=== PATIENT | male | born 1980 | race Hispanic/Latino ===

== ENCOUNTER 2018-02-11 17:11 | Inpatient (IN) | payer SELFPAY ==
[2018-02-11] MEDS ORDERED: Acetaminophen 500 MG TAB ONE ×2 (17:47→17:52)
[2018-02-11 18:27] LABS: Hemoglobin 14.4 g/dL (14.0-18.0); Mean Corpuscular HGB CONC 34.7 g/dL (32.0-36.0); Mean Corpuscular Hemoglobin 31.8 pg (27.0-31.0); Mean Corpuscular Volume 91.8 fL (78.0-98.0); Platelet Count 365 thou/uL (130-400); RBC Distribution Width 12.9 % (11.5-14.5); Red Blood Cell (RBC) Count 4.51 mill/uL (4.70-6.10); White Blood Cell (WBC) Count 19.8 thou/uL (4.8-10.8)
[2018-02-11 18:41] LABS: Band 7 % (5-11); Lymphocytes 10 % (21-51); MDiff Complete? YES; Monocytes 9 % (0-10); Neutrophil 73 % (42-75); PLT Morphology Comment Appears Adequate; RBC Morphology Normal
[2018-02-11] MEDS ORDERED: cefTRIAXone\\ROCEPHIN 2 GM VIAL ONE (19:46)
[2018-02-11] MEDS ORDERED: predniSONE 20 MG TAB ONE (19:46)
[2018-02-11 19:54] LABS: ALT (SGPT) 48 U/L (8-55); AST (SGOT) 40 U/L (5-34); Albumin 4.1 g/dL (3.5-5.0); Alkaline Phosphatase 76 U/L (40-150); Anion Gap 16 mmol/L (10-20); BUN (Urea Nitrogen) 14 mg/dL (8.9-20.6); Bilirubin, Total 2.3 mg/dL (0.2-1.2); Calc. Creatinine Clearance 0 mL/min (70-130); Calcium 9.1 mg/dL (7.8-10.44); Carbon Dioxide 18 mmol/L (22-29); Chloride 101 mmol/L (98-107); Estimated GFR-MDRD 71; Globulin 3.7 g/dL (2.4-3.5); Glucose 104 mg/dL (70-105); Protein, Total 7.8 g/dL (6.0-8.3); Sodium 131 mmol/L (136-145)
--- NOTE | 2018-02-11 19:54 | RAD ---
CHEST TWO VIEWS: 02/11/18 COMPARISON: 11/20/14. HISTORY: Dyspnea. Fever. Shortness of breath x3 days. FINDINGS: Normal cardiac silhouette. Pulmonary vessels and hilum are normal. Costophrenic angles are clear. Lung volumes are diminished which may accentuate the interstitium. The possibility of an interstitial infiltrate cannot be completely excluded. No consolidation with air bronchograms. No pneumothorax or osseous abnormalities. IMPRESSION: 1. Diminished lung volumes likely due to poor inspiratory effort. 2. Prominent interstitium which may be accentuated by decreased lung volumes. 3. Interstitial infiltrate cannot be excluded. Continued surveillance is recommended. POS: [facility]
[2018-02-11] MEDS ORDERED: Ondansetron HCl/PF 4 MG/2 ML Vial ONE (19:59)
[2018-02-11 20:24] LABS: Bilirubin Small (Negative); Blood, Urine Negative (Negative); Clarity CLEAR (Clear); Glucose, Urine (Dipstick) Negative (Negative); Leukocyte Trace (Negative); Nitrite Negative (Negative); Protein, Urine (Dipstick) 30 mg/dL (Neg-Trace); Specific Gravity, Urine 1.021 (1.002-1.036); Urobilinogen > or = 8.0 mg/dL (0.2-1.0)
[2018-02-11 20:26] LABS: Bacteria/HPF None Seen HPF (None Seen); Hyaline Casts/LPF 0-3 HYALINE CAST LPF (0-3 Hyaline); Squamous Epithelial 0-3 HPF (0-3); WBC/HPF 0-3 HPF (0-3)
[2018-02-11] MEDS ORDERED: Azithromycin 500 MG VIAL ONE (20:26)
[2018-02-11 20:38] LABS: RBC/HPF 0-3 HPF (0-3)
[2018-02-11 20:43] LABS: Actual Bicarbonate (HCO3a) 18.6 mEq/L (22-28); Base Excess (BEa) 4.5 mEq/L (-2.0 to +3.0); CO2 Tension 28.8 mmHg (35.0-45.0); Carboxyhemoglobin (COHb) 0.1 gm% (0.0-3.0); Hemoglobin (Hb) 13.2 g/dL (14.0-18.0); O2 Tension (PaO2) 72.6 mmHg (80.0-100.0); pH, Arterial 7.43 (7.35-7.45)
[2018-02-11 20:44] LABS: Analyzer IN Cardio ER; Calcium, Ionized 1.08 mmol/L (1.12-1.30); Potassium - ABG Lab 3.71 mmol/L (3.70-5.30); Puncture Site RRA
[2018-02-11] MEDS ORDERED: Albuterol Sulfate 1.25 MG/3 ML NEB NEB PRN (21:11)
[2018-02-11] MEDS ORDERED: Ondansetron HCl/PF 4 MG/2 ML Vial IVP PRN (21:13)
[2018-02-11] MEDS ORDERED: Acetaminophen 325 MG TAB PO PRN (21:13)
[2018-02-12] MEDS: Sodium Chloride 0.9% 1,000 ML IV SCH ×3 (01:21→18:13)
[2018-02-12 01:33] VITALS: BMI 36.9
[2018-02-12] MEDS: Albuterol Sulfate 1.25 MG/3 ML NEB NEB SCH ×7 (02:04→22:46)
[2018-02-12 05:41] LABS: #Lymphocytes 1.1 thou/uL (1.20-3.40); %Eosinophils 0.1 % (0.0-10.0); %Lymphocytes 7.5 % (21.0-51.0); %Monocytes 7.4 % (0.0-10.0); %Neutrophils 85.1 % (42.0-75.0); Hemoglobin 12.7 g/dL (14.0-18.0); Mean Corpuscular HGB CONC 34.7 g/dL (32.0-36.0); Mean Corpuscular Hemoglobin 32.1 pg (27.0-31.0); Mean Corpuscular Volume 92.6 fL (78.0-98.0); Mean Platelet Volume 7.4 fL (7.4-10.4); Platelet Count 368 thou/uL (130-400); RBC Distribution Width 13.1 % (11.5-14.5); Red Blood Cell (RBC) Count 3.95 mill/uL (4.70-6.10); White Blood Cell (WBC) Count 14.1 thou/uL (4.8-10.8)
[2018-02-12 06:03] LABS: Anion Gap 14 mmol/L (10-20); BUN (Urea Nitrogen) 12 mg/dL (8.9-20.6); Calc. Creatinine Clearance 178 mL/min (70-130); Calcium 8.8 mg/dL (7.8-10.44); Carbon Dioxide 20 mmol/L (22-29); Chloride 108 mmol/L (98-107); Estimated GFR-MDRD Greater than 90; Glucose 133 mg/dL (70-105); Potassium 4.5 mmol/L (3.5-5.1); Sodium 137 mmol/L (136-145)
--- NOTE | 2018-02-12 06:54 | HP ---
PRIMARY CARE PHYSICIAN: Patient goes to see Dr. Caldera. CODE STATUS: FULL CODE. TIME OF EVALUATION: 8:50 p.m. CHIEF COMPLAINT: Severe shortness of breath, wheezing. HISTORY OF PRESENT ILLNESS: This is a 37-year-old male patient with past medical history of asthma, came to the hospital after having severe shortness of breath, associated with fever and wheezing. As noted, the patient had a previous episode of asthma and has been in ICU never intubated, has also reported having cough, scant sputum production, no sick contacts at home. The patient needed aggressive treatment for asthma exacerbation in the ER. Symptoms are severe, ABG showing respiratory alkalosis. During my examination, the patient is able to move air in the lungs, also still have some significant wheezing bilaterally, Chest x-ray positive for possible pneumonia, we will admit for this reason REVIEW OF SYSTEMS: CONSTITUTIONAL: The patient has fever or chills, generalized weakness. RESPIRATORY: The patient had cough, sputum production, shortness of breath. CARDIOVASCULAR: No chest pain, palpitation. GASTROINTESTINAL: No nausea, no vomiting, diarrhea or abdominal pain. LAYOUT TECHNICIAN: No dizziness, headache or feeling lightheaded. GENITOURINARY: No burning on urination. EXTREMITIES: No leg swelling. All other systems reviewed and negative except for the findings mentioned above. PAST MEDICAL HISTORY: The patient has history of asthma, reportedly kidney problems. PAST SURGICAL HISTORY: No surgical history. FAMILY HISTORY: Reviewed and non contributory for current presentations. PSYCHIATRIC HISTORY: No previous psychiatric history. SOCIAL HISTORY: Drinks socially, no drugs, smokes 6 cigarettes per day. ALLERGIES: No known drug allergies. MEDICATIONS: Albuterol, Proventil, Qvar. PHYSICAL EXAMINATION: VITAL SIGNS: On presentation, heart rate 98, respiratory rate was 22, oxygen saturation 94. GENERAL APPEARANCE: The patient is alert, oriented, not in acute distress. HEENT: Eyes; normal conjunctivae, moist oral mucosa. Anicteric. No JVD. RESPIRATORY: Bilateral air entry is improved, the patient has bilateral wheezing, no rales are heard. Symmetrical expansion. CARDIOVASCULAR: The patient was tachycardic with no murmurs. No gallop. No edema. ABDOMEN: Soft, normal bowel sounds. MUSCULOSKELETAL: Baseline range of motion and strength. No tenderness. SKIN: Warm and intact. No pallor, no rash, no redness. Peripheral pulses are present. Capillary refill seems to be intact. NEUROLOGIC: Baseline sensory. No evidence of any new focal weakness. Baseline speech. Cranial nerves seem to be intact. PSYCHIATRIC: The patient is good mood. He is alert and oriented. Optimal judgment. EKG was reviewed. The patient has normal sinus rhythm with a rate of 82, no evidence of any acute ischemic event. This was discussed with performing physician from ER. Chest x-ray showed poor inspiratory effort and possible early infiltrate as reported by radiologist. LABORATORY DATA: Labs were reviewed. The patient has white count 19.8 with hemoglobin 14, MCV 91, platelet count 365. Blood gas showed pH 7.43 with pCO2 28, pO2 72. This was done to room air. Chemistry: Sodium 131, potassium 4.0, chloride 101, carbon dioxide 18, anion gap 16, BUN 14, creatinine 1.1, GFR 71, glucose 104. Lactic acid 1.1, calcium 9.1, total bilirubin 2.3, AST 40, ALT 48 , alkaline phosphatase 76. Serum total protein 7.8, albumin 4.1, globulin 3.7, albumin globulin ratio is 1.1. The urine was done and it was negative for infection. ASSESSMENT AND PLAN: The patient will be placed in the hospital for the following medical problems. 1. Severe asthma attack, patient given steroids, nebulizers, the patient also will need antibiotics due to pneumonia. 2. Community-acquired pneumonia. The patient is started on antibiotics, given underlying asthma, also treated with nebs and steroids. We will follow cultures. We will adjust treatment as needed. 3. Deep venous thrombosis prophylaxis. 4. The patient is obese, advised to lose weight. 5. Respiratory alkalosis, the patient has pCO2 of 28 with pH 7.43, this is likely secondary to hyperventilation due to asthma, we will treat underlying condition. 6. Hyponatremia. Sodium 131, this is mild, no need for any acute intervention. 7. Anion gap metabolic acidosis. There is compensatory for respiratory alkalosis. 8. Possible sepsis. The patient had fever, tachycardia, leukocytosis, source is pneumonia, treatment as above. 9. Dehydration. MTDD
[2018-02-12] MEDS: Enoxaparin Sodium 40 MG/0.4 ML SYRINGE SC SCH (08:12)
[2018-02-12 09:23] LABS: ALT (SGPT) 54 U/L (8-55); AST (SGOT) 48 U/L (5-34); Albumin 3.6 g/dL (3.5-5.0); Alkaline Phosphatase 75 U/L (40-150); Bilirubin, Direct 0.5 mg/dL (0.1-0.3); Bilirubin, Total 1.1 mg/dL (0.2-1.2)
[2018-02-12] MEDS: cefTRIAXone\\ROCEPHIN 1 GM in Sodium Chloride 0.9% 100 ML IVPB SCH (20:24)
[2018-02-12] MEDS: Azithromycin 500 MG in Sodium Chloride 0.9% 250 ML 250 ML IVPB SCH (22:04)
--- NOTE | 2018-02-12 22:04 | PDOC.PN ---
- Subjective Encounter Start Date: 02/12/18 Encounter Start Time: 09:45 Patient seen and examined for Asthma exacerbation/Pneumonia. Wheezing +. No other complaints. No overnight events - Objective Resuscitation Status: Resuscitation Status FULL:Full Resuscitation MAR Reviewed: Yes Vital Signs & Weight: Vital Signs (12 hours) Temp Pulse Resp BP Pulse Ox 02/12/18 18:42 56 L 16 95 02/12/18 16:23 98.5 F 70 16 120/71 93 L 02/12/18 14:29 68 16 96 02/12/18 11:48 98.6 F 64 18 106/58 L 93 L 02/12/18 11:01 67 16 97 Weight Weight 235 lb 12.8 oz I&O: 02/11/18 02/12/18 02/13/18 06:59 06:59 06:59 Intake Total 602 1520 Balance 602 1520 Result Diagrams: 02/13/18 04:19 02/13/18 04:19 Phys Exam - Physical Examination Constitutional: NAD Respiratory: no rhonchi, wheezing present Cardiovascular: RRR, no rub Gastrointestinal: soft, non-tender, no distention, positive bowel sounds Musculoskeletal: no edema Neurological: non-focal, moves all 4 limbs Dx/Plan - Plan continue antibiotics, respiratory therapy, DVT proph w/lovenox, DVT proph w/SCDs IMPRESSION: 1. Acute Asthma Exacerbation 2. CA Pneumonia ?Pneumococcal 3. Obesity BMI 36.9 4. Abn LFTs PLAN: Cont Ceftriaxone/Azithromycin with Steroids Cont Nebs AM labs Cont other meds as below Review of Systems - Review of Systems Constitutional: negative: fever, chills, sweats, weakness, malaise, other Eyes: negative: Pain, Vision Change, Conjunctivae Inflammation, Eyelid Inflammation, Redness, Other Respiratory: Cough, Dry, SOB with Excertion, Wheezing Genitourinary: negative: Dysuria, Frequency, Incontinence, Hematuria, Retention , Other - Medications/Allergies Allergies/Adverse Reactions: Allergies Allergy/AdvReac Type Severity Reaction Status Date / Time No Known Drug Allergies Allergy Verified 02/12/18 01:50 Medications: Current Medications Acetaminophen (Tylenol) 650 mg PO Q4H PRN PRN Reason: Headache/Fever or Pain Albuterol Sulfate (Albuterol Sulfate) 1.25 mg NEB [id number] MARK Last Admin: 02/12/18 18:42 Dose: 1.25 mg Albuterol Sulfate (Albuterol Sulfate) 1.25 mg NEB Q2H PRN PRN Reason: Wheezing/SOB Enoxaparin Sodium (Lovenox) 40 mg SC 0900 [facility] Last Admin: 02/12/18 08:12 Dose: 40 mg Azithromycin 500 mg/ Sodium (Chloride) 250 mls @ 250 mls/hr IVPB Q24HR MARK Ceftriaxone Sodium 1 gm/ (Sodium Chloride) 100 mls @ 200 mls/hr IVPB Q24HR [facility] Last Admin: 02/12/18 20:24 Dose: 100 mls Sodium Chloride (Normal Saline 0.9%) 1,000 mls @ 100 mls/hr IV .Q10H [facility] Last Admin: 02/12/18 18:13 Dose: Not Given Methylprednisolone Sodium Succinate (Solu-Medrol) 40 mg IVP 0200,0800,1400, 2000 [facility] Last Admin: 02/12/18 20:24 Dose: 40 mg Ondansetron HCl (Zofran) 4 mg IVP Q6H PRN PRN Reason: Nausea/Vomiting Pneumococcal Polyvalent Vaccine (Pneumovax 23) 0.5 ml IM .ONCE ONE Stop: 02/13/18 09:01 Sodium Chloride (Flush - Normal Saline) 10 ml IVF Q12HR [facility] Last Admin: 02/12/18 20:24 Dose: Not Given Sodium Chloride (Flush - Normal Saline) 10 ml IVF PRN PRN PRN Reason: Saline Flush
[2018-02-13] MEDS: Sodium Chloride 0.9% 1,000 ML IV SCH ×3 (02:19→17:51)
[2018-02-13] MEDS: Albuterol Sulfate 1.25 MG/3 ML NEB NEB SCH ×6 (02:36→22:19)
[2018-02-13 04:54] LABS: Anion Gap 11 mmol/L (10-20); BUN (Urea Nitrogen) 13 mg/dL (8.9-20.6); Calc. Creatinine Clearance 198 mL/min (70-130); Calcium 8.4 mg/dL (7.8-10.44); Carbon Dioxide 21 mmol/L (22-29); Chloride 110 mmol/L (98-107); Estimated GFR-MDRD Greater than 90; Glucose 133 mg/dL (70-105); Sodium 138 mmol/L (136-145)
[2018-02-13 05:03] LABS: Band 14 % (5-11); Hemoglobin 12.3 g/dL (14.0-18.0); Lymphocytes 9 % (21-51); MDiff Complete? YES; Mean Corpuscular Hemoglobin 31.4 pg (27.0-31.0); Mean Corpuscular Volume 92.1 fL (78.0-98.0); Mean Platelet Volume 7.1 fL (7.4-10.4); Monocytes 4 % (0-10); Neutrophil 73 % (42-75); Platelet Count 420 thou/uL (130-400); RBC Distribution Width 13.1 % (11.5-14.5); Red Blood Cell (RBC) Count 3.92 mill/uL (4.70-6.10); White Blood Cell (WBC) Count 22.4 thou/uL (4.8-10.8)
[2018-02-13] MEDS: Enoxaparin Sodium 40 MG/0.4 ML SYRINGE SC SCH (10:22)
[2018-02-13] MEDS ORDERED: Famotidine 20 MG TAB PO SCH (10:30)
[2018-02-13] MEDS ORDERED: predniSONE 20 MG TAB PO SCH (10:30)
[2018-02-13] MEDS: predniSONE 20 MG TAB PO SCH (17:50)
--- NOTE | 2018-02-13 18:24 | PDOC.PN ---
- Subjective Encounter Start Date: 02/13/18 Encounter Start Time: 13:00 Patient seen and examined for Asthma flare with Pneumonia. Feels better. Intermittent wheezing +. Dry cough +. No other complaints. No overnight events - Objective Resuscitation Status: Resuscitation Status FULL:Full Resuscitation MAR Reviewed: Yes Vital Signs & Weight: Vital Signs (12 hours) Temp Pulse Resp BP Pulse Ox 02/13/18 16:50 98.0 F 70 20 119/69 94 L 02/13/18 16:40 97.6 F 76 20 109/65 92 L 02/13/18 11:00 97.8 F 70 20 114/66 94 L 02/13/18 10:25 65 16 95 02/13/18 08:00 97.7 F 64 18 117/66 92 L 02/13/18 07:04 67 16 94 L Weight Weight 235 lb 12.8 oz I&O: 02/12/18 02/13/18 02/14/18 06:59 06:59 06:59 Intake Total 602 1520 Balance 602 1520 Result Diagrams: 02/13/18 04:19 02/13/18 04:19 Phys Exam - Physical Examination Constitutional: NAD Respiratory: no rhonchi, wheezing present Bibasilar rales Cardiovascular: RRR, no rub Gastrointestinal: soft, non-tender, positive bowel sounds Musculoskeletal: no edema Neurological: moves all 4 limbs Dx/Plan - Plan DVT proph w/lovenox, DVT proph w/SCDs IMPRESSION: 1. Acute Asthma Exacerbation - improving 2. CA Pneumonia ?Pneumococcal 3. Obesity BMI 36.9 4. Abn LFTs PLAN: Change IV steroids to PO Cont Ceftriaxone/Azithromycin Cont Neb treatment CXR - PA-Lat in AM DC in AM if stable DC Lovenox - Advised to Ambulate Cont other meds as below AM labs DC IVF Review of Systems - Review of Systems Constitutional: negative: fever, chills, sweats, weakness, malaise, other Cardiovascular: negative: chest pain, palpitations, orthopnea, paroxysmal nocturnal dyspnea, edema, light headedness, other - Medications/Allergies Allergies/Adverse Reactions: Allergies Allergy/AdvReac Type Severity Reaction Status Date / Time No Known Drug Allergies Allergy Verified 02/12/18 01:50 Medications: Current Medications Acetaminophen (Tylenol) 650 mg PO Q4H PRN PRN Reason: Headache/Fever or Pain Albuterol Sulfate (Albuterol Sulfate) 1.25 mg NEB [id number] REPLACED BY [facility] Last Admin: 02/13/18 14:06 Dose: 1.25 mg Albuterol Sulfate (Albuterol Sulfate) 1.25 mg NEB Q2H PRN PRN Reason: Wheezing/SOB Enoxaparin Sodium (Lovenox) 40 mg SC 0900 REPLACED BY [facility] Last Admin: 02/13/18 10:22 Dose: 40 mg Famotidine (Pepcid) 20 mg PO BID REPLACED BY [facility] Azithromycin 500 mg/ Sodium (Chloride) 250 mls @ 250 mls/hr IVPB Q24HR REPLACED BY [facility] Last Admin: 02/12/18 22:04 Dose: 250 mls Ceftriaxone Sodium 1 gm/ (Sodium Chloride) 100 mls @ 200 mls/hr IVPB Q24HR REPLACED BY [facility] Last Admin: 02/12/18 20:24 Dose: 100 mls Sodium Chloride (Normal Saline 0.9%) 1,000 mls @ 100 mls/hr IV .Q10H REPLACED BY [facility] Last Admin: 02/13/18 17:51 Dose: 1,000 mls Ondansetron HCl (Zofran) 4 mg IVP Q6H PRN PRN Reason: Nausea/Vomiting Prednisone (Prednisone) 20 mg PO BID-[facility] Last Admin: 02/13/18 17:50 Dose: 20 mg Sodium Chloride (Flush - Normal Saline) 10 ml IVF Q12HR REPLACED BY [facility] Last Admin: 02/13/18 10:22 Dose: Not Given Sodium Chloride (Flush - Normal Saline) 10 ml IVF PRN PRN PRN Reason: Saline Flush
[2018-02-13] MEDS: Famotidine 20 MG TAB PO SCH (20:32)
[2018-02-13] MEDS: cefTRIAXone\\ROCEPHIN 1 GM in Sodium Chloride 0.9% 100 ML IVPB SCH (20:32)
[2018-02-13] MEDS: Azithromycin 500 MG in Sodium Chloride 0.9% 250 ML 250 ML IVPB SCH (21:28)
[2018-02-14] MEDS: Albuterol Sulfate 1.25 MG/3 ML NEB NEB SCH ×6 (02:10→22:10)
[2018-02-14 06:00] LABS: Band 22 % (5-11); Hemoglobin 12.2 g/dL (14.0-18.0); Lymphocytes 14 % (21-51); MDiff Complete? YES; Mean Corpuscular HGB CONC 34.8 g/dL (32.0-36.0); Mean Corpuscular Hemoglobin 32.2 pg (27.0-31.0); Mean Corpuscular Volume 92.7 fL (78.0-98.0); Mean Platelet Volume 7.7 fL (7.4-10.4); Metamyelocyte 2 % (0-0); Monocytes 11 % (0-10); Myelocyte 1 % (0-0); Neutrophil 50 % (42-75); Platelet Count 450 thou/uL (130-400); RBC Distribution Width 13.5 % (11.5-14.5); Red Blood Cell (RBC) Count 3.79 mill/uL (4.70-6.10); White Blood Cell (WBC) Count 19.9 thou/uL (4.8-10.8)
--- NOTE | 2018-02-14 09:21 | RAD ---
CHEST 2 VIEWS: HISTORY: Pneumonia. Followup. COMPARISON: 02/11/18. FINDINGS: Cardiac silhouette is magnified by projection. Pulmonary vasculature upper limits of normal. Medias tinum is midline. Ill-defined parenchymal opacity at the right posterolateral lung base now partiall y obscures the posterior aspect of the right hemidiaphragm on the lateral view. Left lung is clear. No evidence of pneumothorax. IMPRESSION: Right lower lobe pneumonia is now visible. POS: [facility]
[2018-02-14] MEDS: Famotidine 20 MG TAB PO SCH ×2 (09:22→19:37)
[2018-02-14] MEDS: predniSONE 20 MG TAB PO SCH (09:22)
[2018-02-14] MEDS: cefTRIAXone\\ROCEPHIN 1 GM in Sodium Chloride 0.9% 100 ML IVPB SCH (19:37)
--- NOTE | 2018-02-14 21:07 | PDOC.PN ---
- Subjective Encounter Start Date: 02/14/18 Encounter Start Time: 13:30 Patient seen and examined for Sepsis. Feels better. No fever. Some cough - dry. No other complaints. No overnight events - Objective Resuscitation Status: Resuscitation Status FULL:Full Resuscitation MAR Reviewed: Yes Vital Signs & Weight: Vital Signs (12 hours) Temp Pulse Resp BP Pulse Ox 02/14/18 19:50 98.0 F 63 18 150/85 H 95 02/14/18 18:41 62 12 95 02/14/18 16:20 97.9 F 63 16 157/79 H 94 L 02/14/18 16:00 60 12 02/14/18 11:20 97.9 F 62 18 144/87 H 95 02/14/18 10:12 60 12 Weight Weight 235 lb 12.8 oz I&O: 02/13/18 02/14/18 02/15/18 06:59 06:59 06:59 Intake Total 1520 3150 1210 Balance 1520 3150 1210 Result Diagrams: 02/14/18 04:33 02/13/18 04:19 Radiology Reviewed by me: Yes (CXR - Rt sided Pneumonia) Phys Exam - Physical Examination Constitutional: NAD Respiratory: no wheezing, no rhonchi Rt sided rales Cardiovascular: RRR, no rub Gastrointestinal: soft, non-tender, positive bowel sounds Musculoskeletal: no edema Neurological: moves all 4 limbs Dx/Plan - Plan DVT proph w/SCDs IMPRESSION: 1. Acute Asthma Exacerbation - improving 2. CA Pneumonia ?Pneumococcal 3. Obesity BMI 36.9 4. Abn LFTs - improved PLAN: Cont Ceftriaxone/Azithromycin Cont Prednisone taper with Nebs DC in AM if stable - Has significant leucocytosis with 24% bands today Cont other meds as below CBC in AM Review of Systems - Review of Systems Cardiovascular: negative: chest pain, palpitations, orthopnea, paroxysmal nocturnal dyspnea, edema, light headedness, other Gastrointestinal: negative: Nausea, Vomiting, Abdominal Pain, Diarrhea, Constipation, Melena, Hematochezia, Other - Medications/Allergies Allergies/Adverse Reactions: Allergies Allergy/AdvReac Type Severity Reaction Status Date / Time No Known Drug Allergies Allergy Verified 02/12/18 01:50 Medications: Current Medications Acetaminophen (Tylenol) 650 mg PO Q4H PRN PRN Reason: Headache/Fever or Pain Albuterol Sulfate (Albuterol Sulfate) 1.25 mg NEB [id number] [facility] Last Admin: 02/14/18 18:41 Dose: 1.25 mg Albuterol Sulfate (Albuterol Sulfate) 1.25 mg NEB Q2H PRN PRN Reason: Wheezing/SOB Famotidine (Pepcid) 20 mg PO BID [facility] Last Admin: 02/14/18 19:37 Dose: 20 mg Azithromycin 500 mg/ Sodium (Chloride) 250 mls @ 250 mls/hr IVPB Q24HR [facility] Last Admin: 02/13/18 21:28 Dose: 250 mls Ceftriaxone Sodium 1 gm/ (Sodium Chloride) 100 mls @ 200 mls/hr IVPB Q24HR [facility] Last Admin: 02/14/18 19:37 Dose: 100 mls Ondansetron HCl (Zofran) 4 mg IVP Q6H PRN PRN Reason: Nausea/Vomiting Prednisone (Prednisone) 20 mg PO QAM-WM [facility] Sodium Chloride (Flush - Normal Saline) 10 ml IVF Q12HR [facility] Last Admin: 02/14/18 19:38 Dose: 10 ml Sodium Chloride (Flush - Normal Saline) 10 ml IVF PRN PRN PRN Reason: Saline Flush
[2018-02-14] MEDS: Azithromycin 500 MG in Sodium Chloride 0.9% 250 ML 250 ML IVPB SCH (21:51)
[2018-02-15] MEDS: Albuterol Sulfate 1.25 MG/3 ML NEB NEB SCH ×3 (02:09→10:21)
[2018-02-15] MEDS ORDERED: predniSONE 20 MG TAB PO SCH (08:00)
[2018-02-15] MEDS: Famotidine 20 MG TAB PO SCH (08:49)
[2018-02-15 10:37] LABS: Band 3 % (5-11); Hemoglobin 12.7 g/dL (14.0-18.0); Lymphocytes 40 % (21-51); MDiff Complete? YES; Mean Corpuscular HGB CONC 34.3 g/dL (32.0-36.0); Mean Corpuscular Hemoglobin 31.9 pg (27.0-31.0); Mean Corpuscular Volume 92.9 fL (78.0-98.0); Mean Platelet Volume 7.2 fL (7.4-10.4); Monocytes 8 % (0-10); Neutrophil 49 % (42-75); Nucleated RBC 3 % (0); Platelet Count 449 thou/uL (130-400); Polychromasia SLIGHT = 2-3 cells (100X) (0-2/hpf); RBC Distribution Width 13.5 % (11.5-14.5); Red Blood Cell (RBC) Count 3.97 mill/uL (4.70-6.10); White Blood Cell (WBC) Count 15.6 thou/uL (4.8-10.8)
[2018-02-15 14:44] VITALS: BP 104/58; TEMP 97.7
--- NOTE | 2018-02-17 12:35 | DIS ---
DATE OF DISCHARGE: 02/15/2018 DISCHARGE DISPOSITION: Home. FOLLOWUP: Follow up with primary care physician at [facility] in 1 week. ALLERGIES: No known drug allergies. The patient was seen and examined on the day of discharge. Denies any new complaints. BRIEF HOSPITAL COURSE: Patient is a 37-year-old male with mild persistent asthma who presented to [facility] with severe shortness of breath along with wheezing. Please refer to the history and phys ical for further details. The patient was admitted to the hospital with a diagnosis of severe asthma exacerbation along with co mmunity-acquired pneumonia. Initial chest x-ray showed possible interstitial infiltrate. However, r epeat chest x-ray yesterday showed right lower lobe pneumonia. He showed good response with nebulize r treatment, steroids, and antibiotics. His WBC count on the day of discharge is 15.6 from 22.4. He has been afebrile and has no wheezing. He appears stable for discharge. DISCHARGE MEDICATIONS: Levaquin 750 mg daily, prednisone 10 mg daily for the next 3 days. All other home medications were left unchanged. FINAL DIAGNOSES: 1. Acute hypoxic respiratory failure secondary to asthma exacerbation with community-acquired pneumo simi, suspected pneumococcal. 2. Obesity with a BMI 36.9. 3. Abnormal liver function tests, probably secondary to sepsis, resolved. 4. Hyponatremia, corrected. Plan of care was discussed with the patient and the family in detail. They stated understanding. DIAGNOSTIC TESTS: Blood cultures negative. Influenza testing was negative. Hyponatremia is resolved. His sodium on admission was 131, at discharge is 138.
--- NOTE | 2018-02-22 11:15 | EKG ---
Test Reason : CP Blood Pressure : / mmHG Vent. Rate : 082 BPM Atrial Rate : 082 BPM P-R Int : 150 ms QRS Dur : 092 ms QT Int : 358 ms P-R-T Axes : 033 -03 024 degrees QTc Int : 418 ms Normal sinus rhythm Normal ECG notem Confirmed by KRISTI MCLEOD M.D. ([id number]), proposal editor DANA CHAVIRA ([id number]) on 02/22/2018 11:14:51 AM Referred By: Confirmed By:KRISTI MCLEOD M.D.
== END 2018-02-15 14:42 | disposition home or self-care (01) | DRG 177 ==
LOC: ERS 17:11 → 2NO 20:24 → T4-B 02-12 18:59
PROVIDERS: ADMIT Hospitalist; ATTEND Hospitalist
DX: J15.0 Pneumonia due to Klebsiella pneumoniae (principal); J96.01 Acute respiratory failure with hypoxia; J45.901 Unspecified asthma with (acute) exacerbation; E87.3 Alkalosis; E87.1 Hypo-osmolality and hyponatremia; E66.9 Obesity, unspecified; Z68.36 Body mass index [BMI] 36.0-36.9, adult
CPT/HCPCS: 36415; 71046; 80048; 80053; 80076; 81003; 81015; 82805; 83605; 85025; 87040; 87804; 93005; 94640; 96361; 96365; 96375; A4216; J0456; J0696; J1650; J2405; J2920; J7050; J7506; J7620